=== PATIENT | female | born 1955 | race Caucasian/White ===

== ENCOUNTER → 2018-03-12 | Outpatient (CLI) | payer OTHER | END | disposition home or self-care (01) | LOC: KCIC MRI 16:16 | DX: R07.89 Other chest pain (principal); K21.9 Gastro-esophageal reflux disease without esophagitis; Z87.891 Personal history of nicotine dependence | CPT/HCPCS: 71550 ==

== ENCOUNTER 2019-02-06 09:24 | Day surgery (SDC) | payer OTHER ==
[~2019-02-06] VITALS: Ht 162.6 cm; Wt 126.1 kg
[2019-02-06] MEDS: IV RINGERS,LACTATED 1000ML 1,000 ML IV SCH ×2 (07:00→10:12)
[~2019-02-06 09:24] MED LIST: ALBU2.5V8 INH; ALPR1TAB2 PO; BUDE10.2 IH; CIPROFLOXACIN 0.3% OPHTH SOLUTION 5ML BOTTLE. OS ONE; CYCL1DRO OP; DICL75TA PO; DOCU-109 PO; FEXO180T81 PO; GENTAMICIN SULFATE/PF 4 MG, EPINEPHrine 0.5 MG in BALANCED SALT IRR SOLN (BAG) 500 ML IO ONE; HYDR-2678 PO; IBUP-1060 PO; IPRA4AER IH; LANS30CA66 PO; LANS30TA6 PO; LIDOCAINE 2% JELLY 6ML IN APPLICATOR. MM SCH; META-21 PO; META800T PO; MOME45CR2 TP; MULT-245 PO; POLY17PO29 PO; PROPARACAINE 0.5% OPHTH SOLUTION 15ML BOTTLE. OS ONE; TRAZ-118 PO; TRAZ-86 PO
[2019-02-06] MEDS: PHENYLEPHRINE 10% OPHTH SOLUTION 5ML BOTTLE. OS SCH ×3 (09:58→10:09)
[2019-02-06] MEDS: CYCLOPENTOLATE 1% OPTH SOLUTION 2ML BOTTLE. OS SCH ×3 (09:58→10:09)
[2019-02-06] MEDS ORDERED: LIDOCAINE 1% PF 2 ML VIAL. ONE (10:28)
[2019-02-06] MEDS ORDERED: BALANCED SALT IRRIG OPHTH SOLN 15 ML BOTTLE. ONE (10:28)
[2019-02-06] MEDS ORDERED: NEO/POLYMYX/DEXAMETH OPHTH OINTMENT 3.5GM TUBE. ONE (10:28)
[2019-02-06] MEDS ORDERED: CHONDROIT-SOD-HYALURONATE KIT. ONE (10:28)
[2019-02-06] MEDS ORDERED: CHONDROITIN-SOD-HYALURONATE 0.5 ML DISP.SYRIN. ONE (10:29)
[2019-02-06] MEDS ORDERED: MIDAZOLAM HCL/PF 2 MG/2 ML VIAL. ONE (10:44)
[2019-02-06] MEDS ORDERED: PROPOFOL 0 ML IV ONE (12:05)
[2019-02-06 12:37] VITALS: BP 126/60
--- NOTE | 2019-02-06 13:53 | OP ---
DATE OF SURGERY: 02/06/2019 PREOPERATIVE DIAGNOSIS: Cataract of the left eye. PROCEDURE: Phacoemulsification, posterior chamber intraocular lens implantation of the left eye. INDICATION: Painless, progressive visual loss with a visually significant cataract and difficulty reading and driving. PROCEDURE: The left eye was prepped with Betadine in the usual sterile fashion and draped. A paracentesis was performed, followed by instillation of which is a mixture of preservative-free phenylephrine and lidocaine admixed with balanced salt solution. Viscoelastic was injected in the anterior chamber and a temporal clear corneal incision was made. A capsulorrhexis was performed, followed by hydrodissection and expression of the nucleus to the pupillary plane. Viscoelastic was placed both anterior and posterior to the nucleus and it was evacuated with a phacoemulsification handpiece. The I/A handpiece was used to remove the remainder of the cortex. Viscoelastic was injected in the capsular bag and an John Paul model [id number] with a power of 25.5 diopters was placed into the capsular bag. Balanced salt solution was used to hydrate the corneal wounds and the viscoelastic evacuated with the I/A handpiece. Once no leak was noted, Maxitrol was placed on the eye and the eye shielded and the patient was sent to the recovery room uneventfully. MILO MOORE MD DR: BRIANNA/srikanth JOB#: [id number] / [id number]
== END 2019-02-06 12:50 | disposition home or self-care (01) ==
LOC: SURG 09:24
PROVIDERS: ATTEND Ophthalmology
DX: H25.13 Age-related nuclear cataract, bilateral (principal); H04.123 Dry eye syndrome of bilateral lacrimal glands; H02.834 Dermatochalasis of left upper eyelid; H02.831 Dermatochalasis of right upper eyelid; H43.393 Other vitreous opacities, bilateral; E03.9 Hypothyroidism, unspecified; M19.90 Unspecified osteoarthritis, unspecified site; J45.909 Unspecified asthma, uncomplicated; Z88.0 Allergy status to penicillin; Z88.2 Allergy status to sulfonamides; Z88.6 Allergy status to analgesic agent; Z88.5 Allergy status to narcotic agent; Z88.8 Allergy status to other drugs, medicaments and biological substances; Z91.040 Latex allergy status; Z91.013 Allergy to seafood; Z87.11 Personal history of peptic ulcer disease; Z90.49 Acquired absence of other specified parts of digestive tract; Z98.890 Other specified postprocedural states; Z90.710 Acquired absence of both cervix and uterus; Z72.89 Other problems related to lifestyle; Z79.899 Other long term (current) drug therapy
CPT/HCPCS: 66984; C1780; J0171; J1580; J2250; J2704

== ENCOUNTER 2019-02-13 09:54 | Day surgery (SDC) | payer OTHER ==
[~2019-02-13] VITALS: Ht 162.6 cm; Wt 126.1 kg
[~2019-02-13 09:54] MED LIST changes: +BALANCED SALT IO ONE; +BALANCED SALT IRRIG OPHTH SOLN 15 ML BOTTLE. ONE; +CHONDROIT-SOD-HYALURONATE KIT. ONE; +CHONDROITIN-SOD-HYALURONATE 0.5 ML DISP.SYRIN. ONE; +CIPROFLOXACIN 0.3% OPHTH SOLUTION 5ML BOTTLE. OD ONE; -CIPROFLOXACIN 0.3% OPHTH SOLUTION 5ML BOTTLE. OS ONE; -GENTAMICIN SULFATE/PF 4 MG, EPINEPHrine 0.5 MG in BALANCED SALT IRR SOLN (BAG) 500 ML IO ONE; +IV RINGERS,LACTATED 1000ML 1,000 ML IV SCH; +LIDOCAINE 1% PF 2 ML VIAL. ID PRN; +LIDOCAINE 1% PF 2 ML VIAL. ONE; +LIDOCAINE 2% JELLY 6ML IN APPLICATOR. ONE; +NEO/POLYMYX/DEXAMETH OPHTH OINTMENT 3.5GM TUBE. ONE; +ONDANSETRON PF 4 MG/2 ML VIAL. IV PRN; +PROCHLORPERAZINE 10 MG/2 ML VIAL. IV PRN; +PROPARACAINE 0.5% OPHTH SOLUTION 15ML BOTTLE. OD ONE; -PROPARACAINE 0.5% OPHTH SOLUTION 15ML BOTTLE. OS ONE
[2019-02-13] MEDS: PHENYLEPHRINE 10% OPHTH SOLUTION 5ML BOTTLE. OD SCH ×3 (10:33→10:42)
[2019-02-13] MEDS: CYCLOPENTOLATE 1% OPTH SOLUTION 2ML BOTTLE. OD SCH ×3 (10:33→10:43)
[2019-02-13] MEDS ORDERED: CHONDROITIN-SOD-HYALURONATE 0.5 ML DISP.SYRIN. ONE (11:16)
[2019-02-13] MEDS ORDERED: PROPOFOL 20 ML IV ONE (11:49)
[2019-02-13] MEDS ORDERED: LIDOCAINE 2% PF 5 ML VIAL. ONE (11:49)
[2019-02-13 12:25] VITALS: BP 136/70
[2019-02-13] MEDS ORDERED: ACETAMINOPHEN 325 MG TABLET. PO ONE (12:36)
[2019-02-13] MEDS ORDERED: ACETAMINOPHEN 500 MG TABLET PO ONE (12:45)
--- NOTE | 2019-02-13 13:51 | OP ---
DATE OF SURGERY: 02/13/2019 PREOPERATIVE DIAGNOSIS: Cataract of the left eye. PROCEDURE: Phacoemulsification with posterior chamber intraocular lens implantation of the left eye. INDICATIONS: Painless progressive visual loss and visually significant cataract and difficulty reading and driving. SURGEON: Romulo Cortes MD. ANESTHESIA: Topical with monitored anesthesia care. DESCRIPTION OF PROCEDURE: The left eye was prepped with Betadine in the usual sterile fashion and draped. A paracentesis was performed, followed by instillation of 1% preservative-free lidocaine admixed with phenylephrine and balanced salt solution. Viscoelastic was injected in the anterior chamber and a temporal clear corneal incision was made. A capsulorrhexis was performed, followed by hydrodissection and prolapse of the nucleus to the pupillary plane. Viscoat was placed both anterior and posterior to the nucleus, and it was evacuated with the phacoemulsification handpiece. The I/A handpiece was used to remove the cortex. Viscoelastic was placed into the capsular bag and an John Paul model [id number] with a power of 26.0 diopters was loaded into the injector and attempted to insert into the capsular bag. The cartridge had to be refilled and repositioned in order to explant the lens from the cartridge. This was done uneventfully, and it was noted that there was a slight aberration in the periphery of the lens that was approximately 2.5 mm. This did not appear to be in the visual access, and the lens was rotated in such a way as to keep the aberration from the visual axis. Consideration was given to explant the lens, however, with the potential risk of IOL exchange and the peripheral nature of the aberration, the decision was made to leave the lens within the capsular bag. Balanced salt solution was used to hydrate the corneal wounds and the viscoelastic was evacuated with the I/A handpiece. Once no leaks were noted, Maxitrol was placed on the eye and the eye shielded and the patient was sent to the recovery room uneventfully. MILO MOORE MD DR: BRIANNA/srikanth JOB#: [id number] / [id number]
== END 2019-02-13 12:45 | disposition home or self-care (01) ==
LOC: SURG 09:54
PROVIDERS: ATTEND Ophthalmology
DX: H25.12 Age-related nuclear cataract, left eye (principal); H02.834 Dermatochalasis of left upper eyelid; H02.831 Dermatochalasis of right upper eyelid; H43.393 Other vitreous opacities, bilateral; H04.123 Dry eye syndrome of bilateral lacrimal glands; J45.909 Unspecified asthma, uncomplicated; G47.33 Obstructive sleep apnea (adult) (pediatric); F41.0 Panic disorder [episodic paroxysmal anxiety]; E66.01 Morbid (severe) obesity due to excess calories; Z87.01 Personal history of pneumonia (recurrent); G62.9 Polyneuropathy, unspecified; Z98.41 Cataract extraction status, right eye; Z96.1 Presence of intraocular lens; Z90.49 Acquired absence of other specified parts of digestive tract; Z90.710 Acquired absence of both cervix and uterus; Z98.890 Other specified postprocedural states; Z72.89 Other problems related to lifestyle; Z79.899 Other long term (current) drug therapy; Z88.0 Allergy status to penicillin; Z88.2 Allergy status to sulfonamides; Z88.6 Allergy status to analgesic agent; Z91.040 Latex allergy status; Z79.2 Long term (current) use of antibiotics; Z91.013 Allergy to seafood; Z88.5 Allergy status to narcotic agent; Z88.8 Allergy status to other drugs, medicaments and biological substances; M19.90 Unspecified osteoarthritis, unspecified site; F17.210 Nicotine dependence, cigarettes, uncomplicated; K21.9 Gastro-esophageal reflux disease without esophagitis; Z90.722 Acquired absence of ovaries, bilateral; Z90.79 Acquired absence of other genital organ(s); Z68.42 Body mass index [BMI] 45.0-49.9, adult
CPT/HCPCS: 66984; C1780; J2001; J2704

== ENCOUNTER → 2019-10-17 | Day surgery (SDC) | payer OTHER ==
[~2019-10-17] MED LIST changes: -BALANCED SALT IO ONE; -BALANCED SALT IRRIG OPHTH SOLN 15 ML BOTTLE. ONE; -CHONDROIT-SOD-HYALURONATE KIT. ONE; -CHONDROITIN-SOD-HYALURONATE 0.5 ML DISP.SYRIN. ONE; -CIPROFLOXACIN 0.3% OPHTH SOLUTION 5ML BOTTLE. OD ONE; +IV RINGERS,LACTATED 1000ML 1,000 ML IV ONE; -IV RINGERS,LACTATED 1000ML 1,000 ML IV SCH; -LIDOCAINE 1% PF 2 ML VIAL. ID PRN; -LIDOCAINE 1% PF 2 ML VIAL. ONE; -LIDOCAINE 2% JELLY 6ML IN APPLICATOR. MM SCH; -LIDOCAINE 2% JELLY 6ML IN APPLICATOR. ONE; +LIDOCAINE 2% PF 5 ML VIAL. ONE; -MOME45CR2 TP; +MOME45CR3 TP; -NEO/POLYMYX/DEXAMETH OPHTH OINTMENT 3.5GM TUBE. ONE; -ONDANSETRON PF 4 MG/2 ML VIAL. IV PRN; -PROCHLORPERAZINE 10 MG/2 ML VIAL. IV PRN; -PROPARACAINE 0.5% OPHTH SOLUTION 15ML BOTTLE. OD ONE; +PROPOFOL 40 ML IV ONE
[2019-10-17 14:45] VITALS: BP 137/83
== END ==
LOC: ENDOS 12:16
PROVIDERS: ATTEND Internal Medicine Gastroenterology
DX: R13.10 Dysphagia, unspecified (principal); K22.2 Esophageal obstruction; K21.9 Gastro-esophageal reflux disease without esophagitis; F41.9 Anxiety disorder, unspecified; F32.9 Major depressive disorder, single episode, unspecified; J45.909 Unspecified asthma, uncomplicated; E03.9 Hypothyroidism, unspecified; F15.90 Other stimulant use, unspecified, uncomplicated; Z88.8 Allergy status to other drugs, medicaments and biological substances; Z88.1 Allergy status to other antibiotic agents; Z91.041 Radiographic dye allergy status; Z91.040 Latex allergy status; Z87.39 Personal history of other diseases of the musculoskeletal system and connective tissue; Z72.89 Other problems related to lifestyle; Z90.710 Acquired absence of both cervix and uterus; Z98.890 Other specified postprocedural states
CPT/HCPCS: 43235; 43450; J2001; J2704

== ENCOUNTER → 2020-02-10 | Outpatient (CLI) | payer OTHER ==
[2019-10-17 14:45] VITALS: BP 137/83
[~2020-02-10] MED LIST changes: -IV RINGERS,LACTATED 1000ML 1,000 ML IV ONE; -LIDOCAINE 2% PF 5 ML VIAL. ONE; -PROPOFOL 40 ML IV ONE; +TRAZ-123 PO; -TRAZ-86 PO
--- NOTE | 2020-02-10 08:55 | KCIC ---
Bilateral Lower Extremity Venous Doppler Ultrasound History: Swollen and tender lower extremities Comparison: None Procedure: Color flow, duplex, spectral analysis and 2D images are obtained with and without compression in the area of the common femoral vein, superficial femoral vein - femoral vein junction, main femoral vein (superficial femoral vein) and popliteal vein. Veins of the proximal calf are also imaged. Findings: There is normal duplex flow, color flow and compressibility of all visualized vein segments. No evidence of deep venous thrombus is present. There are 2 complex cystic structures in the popliteal fossa deep to the popliteal artery and vein one measuring 2.3 x 2.5 x 2.2 cm and the other measuring 2.2 x 2.5 x 1.7 cm. Impression: No evidence of DVT. Electronically signed by: Ismael Quintana III, MD (02/10/2020 8:52 AM) [id number]
== END | disposition home or self-care (01) ==
LOC: KCIC US 08:00
PROVIDERS: ATTEND Family Medicine
DX: I89.0 Lymphedema, not elsewhere classified (principal)
CPT/HCPCS: 93970

== ENCOUNTER → 2020-02-10 | Outpatient (CLI) | payer OTHER ==
[2019-10-17 14:45] VITALS: BP 137/83
--- NOTE | 2020-02-10 09:41 | KCIC ---
LUMBAR SPINE WO CONTRAST Date: 02/10/2020 9:30 AM Indication: Low back pain with bilateral lower extremity radiculopathy Comparison: 03/31/2015. Technique: Multi-planar multi-weighted magnetic resonance imaging of the lumbar spine was performed without intravenous contrast using the standard lumbar spine protocol. FINDINGS: The lumbar spine is normally aligned. No acute fracture. Mild to moderate multilevel degenerative disc desiccation and disc height loss. Fatty degenerative endplate changes at L2-3. The conus terminates at a normal level. No abnormal signal is seen within the visualized distal spinal cord. No clumping of intrathecal nerve roots. No soft tissue abnormality in the visualized abdomen or pelvis. T12-L1: No disc bulge. No facet arthropathy. No significant spinal stenosis or neural foraminal narrowing. L1-L2: No disc bulge. No facet arthropathy. No significant spinal stenosis or neural foraminal narrowing. L2-L3: Disc bulge. Mild facet arthropathy. Mild spinal stenosis. Mild to moderate left neural foraminal narrowing. L3-L4: Disc bulge. Mild facet arthropathy. No significant spinal stenosis or neural foraminal narrowing. L4-L5: Disc bulge. Mild facet arthropathy. No significant spinal stenosis. Mild left lateral recess narrowing. Mild right neural foraminal narrowing. L5-S1: Disc bulge with bilateral far lateral protrusions which abut the exiting L5 nerve roots. Mild facet arthropathy. No significant spinal stenosis. Moderate bilateral neural foraminal narrowing. IMPRESSION: Qjwl-jg-btgfbphe lumbar spondylosis, detailed level by level above. Electronically signed by: Checo Calderón MD (02/10/2020 9:38 AM) [id number]
== END | disposition home or self-care (01) ==
LOC: KCIC MRI 07:35
PROVIDERS: ATTEND Orthopaedic Surgery
DX: M47.816 Spondylosis without myelopathy or radiculopathy, lumbar region (principal); M48.07 Spinal stenosis, lumbosacral region; M51.27 Other intervertebral disc displacement, lumbosacral region; M46.87 Other specified inflammatory spondylopathies, lumbosacral region; M17.12 Unilateral primary osteoarthritis, left knee
CPT/HCPCS: 72148

== ENCOUNTER → 2020-08-07 | Outpatient (CLI) | payer OTHER ==
[2019-10-17 14:45] VITALS: BP 137/83
--- NOTE | 2020-08-07 15:46 | CARD ---
MR#: [id number] Date of Study: 08/07/2020 Ordering Physician: NETO GARVEY, Referring Physician: NETO GARVEY, Tech: Megan Baeza APPROVED REPORT EXAM: Two-dimensional and M-mode echocardiogram with Doppler and color Doppler. Other Information Quality : AverageHR: 85bpm Technically limited study due to body habitus. INDICATION COPD RISK FACTORS Previous smoker 2D DIMENSIONS RVDd3.2 (2.9-3.5cm)Left Atrium(2D)3.5 (1.6-4.0cm) IVSd1.0 (0.7-1.1cm)Aortic Root(2D)3.1 (2.0-3.7cm) LVDd5.5 (3.9-5.9cm)LVOT Diameter2.0 (1.8-2.4cm) PWd1.0 (0.7-1.1cm)LVDs3.7 (2.5-4.0cm) FS (%) 32.1 %SV86.3 ml LVEF(%)59.7 (>50%) Aortic Valve AoV Peak Pascual.149.9cm/sAoV VTI28.2cm AO Peak GR.9.0mmHgLVOT Peak Pascual.112.2cm/s LVOT VTI 21.50cmAO Mean GR.5mmHg ALYCIA (VMAX)1.51lt6TZE (VTI)2.34cm2 Mitral Valve MV E Jlhepkzk56.0cm/sMV DECEL [id number] MV A Srzqguqc84.1cm/sMV E Mean Gr.2mmHg MV YJD58nkV/A Ratio0.8 MVA (PHT)2.51cm2 TDI E/Lateral E'6.3E/Medial E'7.4 Pulmonary Valve PV Peak Szjlsaig254.2cm/sPV Peak Grad.4mmHg Tricuspid Valve TR P. Nutdbxfh809cs/sRAP [id number] TR Peak Gr.36tsXcSXUV72sqAa Pulmonary Vein S1 Hitjnmym54.7cm/sD2 Zdxforgq34.1cm/s PVa iftsxsoy103sjmj LEFT VENTRICLE The left ventricle is normal size. There is normal left ventricular wall thickness. The left ventricu lar systolic function is normal and the ejection fraction is within normal range. The Ejection Fracti on is 50-55%. There is normal LV segmental wall motion. Transmitral Doppler flow pattern is Grade I-a bnormal relaxation pattern. RIGHT VENTRICLE The right ventricle is normal size. There is normal right ventricular wall thickness. The right ventr icular systolic function is normal. ATRIA The left atrium size is normal. The right atrium size is normal. The interatrial septum is intact wit h no evidence for an atrial septal defect or patent foramen ovale as noted on 2-D or Doppler imaging. AORTIC VALVE The aortic valve is normal in structure and function. Doppler and Color Flow revealed no significant aortic regurgitation. There is no significant aortic valvular stenosis. Calculated aortic valve area is 2.26 cm2 with maximum pressure gradient of 9 mmHg and mean pressure gradient of 5 mmHg. MITRAL VALVE The mitral valve is normal in structure and function. There is no evidence of mitral valve prolapse. There is no mitral valve stenosis. Doppler and Color Flow revealed no mitral valve regurgitation note d. TRICUSPID VALVE The tricuspid valve is normal in structure and function. Doppler and Color Flow revealed trace to mil d tricuspid regurgitation with an estimated PAP of 43 mmHg. There is no tricuspid valve stenosis. PULMONIC VALVE The pulmonic valve is not well visualized. Doppler and Color Flow revealed trace to mild pulmonic alize vular regurgitation. GREAT VESSELS The aortic root is normal in size. The ascending aorta is borderline dilated. The IVC is normal in si ze and collapses >50% with inspiration. PERICARDIAL EFFUSION There is no evidence of significant pericardial effusion. Critical Notification Critical Value: No <Conclusion> The left ventricle is normal size. The left ventricular systolic function is normal and the ejection fraction is within normal range. The Ejection Fraction is 50-55%. Doppler and Color Flow revealed no significant aortic regurgitation. There is no significant aortic valvular stenosis. Doppler and Color Flow revealed no mitral valve regurgitation noted. Doppler and Color Flow revealed trace to mild tricuspid regurgitation with an estimated PAP of 43 mmH g. Signed by : Nguyễn Shepard MD Electronically Approved : 08/07/2020 15:46:02
== END | disposition home or self-care (01) ==
LOC: ECHO 12:57
PROVIDERS: ATTEND Internal Medicine Cardiovascular Disease
DX: I08.8 Other rheumatic multiple valve diseases (principal); J44.9 Chronic obstructive pulmonary disease, unspecified
CPT/HCPCS: 93306